=== PATIENT | female | born 1970 | race Caucasian/White ===

== ENCOUNTER → 2016-12-04 | Outpatient (REF) | payer OTHER ==
[~2016-12-04] MED LIST: /CIPR75TA OR; VICO5TAB OR
== END ==
LOC: M LAB REF 16:54
PROVIDERS: ATTEND Internal Medicine Nephrology
DX: N39.0 Urinary tract infection, site not specified (principal); E03.9 Hypothyroidism, unspecified

== ENCOUNTER → 2018-05-26 | Outpatient (REF) | payer OTHER | LOC: M LAB REF 12:17 | DX: E04.1 Nontoxic single thyroid nodule (principal) ==

== ENCOUNTER → 2019-02-12 | Outpatient (CLI) | payer OTHER ==
--- NOTE | 2019-02-13 09:21 | REP ---
Clinical: Hypertension . Comparison: 12/28/2011 . Technique: PA and lateral. Findings: The mediastinum and cardiac silhouette are normal. The lung byrd are clear and without acute consolidation, effusion, or pneumothorax. The skeletal structures are intact and normal. Impression: 1. No acute cardiopulmonary process. Electronically Signed by Musa Hernandez MD 02/13/2019 09:13 A
--- NOTE | 2019-02-16 14:18 | REP ---
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 Technique: Real time de leon scale and color evaluation using curved array transducer. Findings: The thyroid gland is diffusely heterogeneous and minimally enlarged. The isthmus measures 6 mm in width. The right lobe measures 4.6 x 2.3 x 1.9 cm and includes 5 x 4 x 6 mm hypoechoic upper pole nonspecific nodule. Left lobe measures 4.9 x 1.8 x 1.9 cm and includes 5 x 4 x 4 mm hypoechoic nonspecific mid pole nodule. Impression: Thyroid gland by ultrasound. Few scattered nonspecific nodules noted. Electronically Signed by Musa Hernandez MD 02/16/2019 02:10 P
== END ==
LOC: M RAD 07:58
PROVIDERS: ATTEND Family Medicine
DX: E04.9 Nontoxic goiter, unspecified (principal); I10 Essential (primary) hypertension; Z12.31 Encounter for screening mammogram for malignant neoplasm of breast

== ENCOUNTER → 2019-02-12 | Outpatient (CLI) | payer OTHER ==
--- NOTE | 2019-02-16 14:08 | REP ---
Clinical: Chronic medical renal disease with prior left nephrectomy. Technique: Real time de leon scale ultrasound examination using curved array transducer. Findings: Findings consistent with prior left nephrectomy with and the left renal fossa. The right kidney demonstrates increased central sinus fat along with cortical scarring and few scattered cysts measuring 1.7 cm in the upper pole and 1.2 cm in the mid pole region. No hydronephrosis or nephrolithiasis. No obvious renal mass lesion or perinephric stranding. Right kidney measures 11.4 x 5.8 x 5.6 cm. Bladder is under distended but grossly unremarkable. Impression: Few right renal cysts and evidence for chronic medical renal disease. Electronically Signed by Musa Hernandez MD 02/16/2019 02:00 P
== END ==
LOC: M RAD 08:05
PROVIDERS: ATTEND Internal Medicine Nephrology
DX: N18.3 Chronic kidney disease, stage 3 (moderate) (principal); N28.1 Cyst of kidney, acquired

== ENCOUNTER → 2019-12-24 | Outpatient (CLI) | payer OTHER ==
[~2019-12-24] MED LIST changes: +D3 S20002 PO; +IRON1TAB2 PO; +LOSA100T50 PO; +NORV5TAB PO; +VITA500045 PO
== END ==
LOC: M LABSMTC 10:03
PROVIDERS: ATTEND Pediatrics
DX: Z03.818 Encounter for observation for suspected exposure to other biological agents ruled out (principal); Z11.59 Encounter for screening for other viral diseases

== ENCOUNTER → 2020-01-20 | Outpatient (CLI) | payer OTHER ==
[2020-01-20 15:22] LABS: BASO # 0.1 10^3/uL (0.0-0.2); BASO % 1.2 % (0.0-1.0); EOS # 0.1 10^3/uL (0.0-0.5); EOS % 1.4 % (0.0-3.0); HEMOGLOBIN 13.8 g/dl (12.0-15.5); LYMPH # 1.8 10^3/uL (1.5-5.0); LYMPH % 36.6 % (24.0-44.0); MEAN CORPUSCULAR HEMOGLOBIN 28.5 pg (27.0-33.0); MEAN CORPUSCULAR HGB CONC 32.1 g/dl (32.0-36.5); MEAN CORPUSCULAR VOLUME 88.8 fl (80.0-96.0); MONO # 0.4 10^3/uL (0.0-0.8); MONO % 7.2 % (0.0-5.0); NEUTROPHILS # 2.6 10^3/uL (1.5-8.5); NEUTROPHILS % 53.4 % (36.0-66.0); PLATELET COUNT, AUTOMATED 228 10^3/uL (150-450); RED BLOOD COUNT 4.84 10^6/uL (4.00-5.40); WHITE BLOOD COUNT 4.9 10^3/uL (4.0-10.0)
[2020-01-20 15:47] LABS: PERCENT SATURATION 35.8 % (13.2-45.0)
== END ==
LOC: M LAB 14:55
PROVIDERS: ATTEND Nurse Practitioner Family
DX: D50.9 Iron deficiency anemia, unspecified (principal)